=== PATIENT | female | born 1990 | race Two or more races ===

== ENCOUNTER 2017-11-20 08:30 | Observation (INO) | payer MEDICAID ==
[~2017-11-20] VITALS: Ht 154.9 cm; Wt 58.5 kg
[2017-11-20] MEDS ORDERED: PREN-96 PO (10:04)
[2017-11-20 10:06] LABS: Urine Bacteria None Seen /hpf (None Seen)
[2017-11-20 10:15] LABS: Urine Blood 1+ /uL (Negative); Urine Specific Gravity 1.024 (1.001-1.035); Urine WBC 6 /hpf (0 - 5)
[2017-11-20 10:16] LABS: Alcohol, Urine < 3.0 mg/dL (0-5); Amphetamine Screen, Urine NEGATIVE (NEGATIVE); Barbiturate Scree,Urine NEGATIVE (NEGATIVE); Benzodiazephine Screen, Urine NEGATIVE (NEGATIVE); Cannabinoid Screen, Urine POSITIVE (NEGATIVE); Cocaine Screen, Urine NEGATIVE (NEGATIVE); Opiate Scree,Urine NEGATIVE (NEGATIVE); Phencyclidine Screen, Urine NEGATIVE (NEGATIVE); Urine Mucus FEW (None Seen)
[2017-11-20] MEDS ORDERED: ceFAZolin 1GM 2 GM in D5W 5% 100 ML IV ONE (10:45)
[2017-11-20] MEDS ORDERED: LACTATED RINGER'S 1,000 ML IV ONE (10:45)
[2017-11-20] MEDS ORDERED: ceFAZolin 1GM/50ML 100 ML IV ONE (11:20)
[2017-11-20] MEDS ORDERED: ceFAZolin 1GM/50ML 50 ML IV ONE ×2 (11:30)
== END 2017-11-20 13:00 | disposition home or self-care (01) | DRG 566 ==
LOC: LDRP 08:30
PROVIDERS: ADMIT Obstetrics & Gynecology; ATTEND Obstetrics & Gynecology
DX: O23.43 Unspecified infection of urinary tract in pregnancy, third trimester (principal); M54.9 Dorsalgia, unspecified; R10.30 Lower abdominal pain, unspecified; Z3A.28 28 weeks gestation of pregnancy
CPT/HCPCS: 59025; 76775; 76815; 80307; 81001; 81002; 96361; 96365; G0378; J0690; J7060

== ENCOUNTER 2018-01-15 08:45 | Observation (INO) | payer MEDICAID ==
[~2018-01-15 08:45] MED LIST: PREN-96 PO
[2018-01-15 10:25] LABS: Alcohol, Urine < 3.0 mg/dL (0-5); Amphetamine Screen, Urine NEGATIVE (NEGATIVE); Barbiturate Scree,Urine NEGATIVE (NEGATIVE); Benzodiazephine Screen, Urine NEGATIVE (NEGATIVE); Cannabinoid Screen, Urine NEGATIVE (NEGATIVE); Cocaine Screen, Urine NEGATIVE (NEGATIVE); Opiate Scree,Urine NEGATIVE (NEGATIVE); Phencyclidine Screen, Urine NEGATIVE (NEGATIVE)
== END 2018-01-15 10:35 | disposition home or self-care (01) | DRG 563 ==
LOC: LDRP 08:45
PROVIDERS: ADMIT Obstetrics & Gynecology; ATTEND Obstetrics & Gynecology
DX: O60.03 Preterm labor without delivery, third trimester (principal); Z3A.36 36 weeks gestation of pregnancy
CPT/HCPCS: 59025; 76818; 80307; 81002; G0378

== ENCOUNTER 2018-01-25 18:22 | Observation (INO) | payer MEDICAID | END 2018-01-25 20:03 | disposition home or self-care (01) | DRG 566 | LOC: LDRP 18:22 | PROVIDERS: ADMIT Obstetrics & Gynecology; ATTEND Obstetrics & Gynecology | DX: O62.9 Abnormality of forces of labor, unspecified (principal); Z3A.38 38 weeks gestation of pregnancy | CPT/HCPCS: 59025; 76818; 81002; G0378 ==

== ENCOUNTER 2018-02-01 08:50 | Observation (INO) | payer MEDICAID | END 2018-02-01 10:02 | disposition home or self-care (01) | DRG 566 | LOC: LDRP 08:50 | PROVIDERS: ADMIT Specialist; ATTEND Specialist | DX: O99.89 Other specified diseases and conditions complicating pregnancy, childbirth and the puerperium (principal); N13.30 Unspecified hydronephrosis; Z3A.39 39 weeks gestation of pregnancy | CPT/HCPCS: 59025; 76818; 81002; G0378 ==

== ENCOUNTER 2018-02-05 14:45 | Inpatient (IN) | payer MEDICAID ==
[~2018-02-05] VITALS: Ht 154.9 cm; Wt 65.8 kg
[2018-02-05] MEDS ORDERED: LACT. RINGERS/OXYTOCIN 20UNITS 1,000 ML IV ONE (15:02)
[2018-02-05] MEDS ORDERED: LACTATED RINGER'S 1,000 ML IV SCH (15:04)
[2018-02-05] MEDS ORDERED: LIDOCAINE 1% (LOCAL ANESTH.) PF 5ml SDV IJ ONE (15:15)
[2018-02-05] MEDS ORDERED: NALBUPHINE HCL 10 MG/1ml INJECTION IV PRN (15:15)
[2018-02-05] MEDS ORDERED: DERMOPLAST 60ML BOTTLE TOP PRN (15:15)
[2018-02-05] MEDS ORDERED: PENICILLIN G POT 5MIL/D5 50ML 50 ML IV ONE (15:15)
[2018-02-05] MEDS ORDERED: WITCH HAZEL-GLYCERIN PAD TOP PRN (15:15)
[2018-02-05] MEDS ORDERED: PHISODERM TOP SOLN 240ML BTL TOP PRN (15:15)
[2018-02-05 15:36] LABS: Basophils # (auto) 0 uL; Basophils % (auto) 0.4 % (0.0-2.0); Eosinophils # (auto) 0.1 uL; Eosinophils % (auto) 0.5 % (0.0-7.0); Hematocrit 42.4 % (36.0-46.0); Hemoglobin 14.8 g/dL (12.2-16.2); Lymphocytes # (auto) 2.6 uL; Mean Corpuscular Hgb Conc. 34.9 g/dL (32.0-36.0); Mean Corpuscular Volume 97.4 fL (80.0-100.0); Monocytes # (auto) 0.6 uL; Monocytes % (auto) 5.8 % (0.0-12.0); Neutrophils # (auto) 7.2 uL; Neutrophils % (auto) 68.3 % (37.0-80.0); Platelet Count (auto) 167 10^3/uL (140-450); Red Blood Cells 4.35 10^6/uL (4.0-5.20); White Blood Cell 10.5 10^3/uL (4.4-10.8)
[2018-02-05 15:54] LABS: INR 0.85 (0.9-1.15); Partial Thromboplastin Time 23.2 sec (23.78-33.04); Prothrombin Time 9.2 sec (9.27-12.13)
[2018-02-05] MEDS: IBUPROFEN 600 MG TAB PO PRN (16:02)
[2018-02-05 16:08] LABS: Albumin 2.8 g/dL (3.4-5.0); Potassium 3.5 mmol/L (3.5-5.1); Total Protein 6.6 g/dL (6.4-8.2)
[2018-02-05 17:59] LABS: Alcohol, Urine < 3.0 mg/dL (0-5); Amphetamine Screen, Urine NEGATIVE (NEGATIVE); Barbiturate Scree,Urine NEGATIVE (NEGATIVE); Benzodiazephine Screen, Urine NEGATIVE (NEGATIVE); Cannabinoid Screen, Urine NEGATIVE (NEGATIVE); Cocaine Screen, Urine NEGATIVE (NEGATIVE); Opiate Scree,Urine NEGATIVE (NEGATIVE); Phencyclidine Screen, Urine NEGATIVE (NEGATIVE)
[2018-02-05 19:15] VITALS: BP 114/72
[2018-02-05 20:09] LABS: Urine Bacteria NONE SEEN /hpf (None Seen); Urine Blood 3+ /uL (Negative); Urine Mucus FEW (None Seen); Urine Specific Gravity 1.012 (1.001-1.035); Urine WBC 2 /hpf (0 - 5)
[2018-02-05] MEDS ORDERED: TETANUS-DIPTH-ACEL PERTUSSIS 0.5ML SYRG IM ONE (20:15)
[2018-02-05 23:04] VITALS: BP 124/82
[2018-02-06 03:20] VITALS: BP 122/85
[2018-02-06] MEDS: IBUPROFEN 600 MG TAB PO PRN (03:53)
[2018-02-06] MEDS ORDERED: TETANUS-DIPTH-ACEL PERTUSSIS 0.5ML SYRG IM ONE (05:45)
[2018-02-06 07:30] VITALS: BP 140/50
[2018-02-06] MEDS ORDERED: DOCUSATE CALCIUM 240 MG CAP PO SCH (10:00)
[2018-02-06 11:30] VITALS: BP 116/78
[2018-02-06] MEDS ORDERED: ACETAMINOPHEN 325 MG TAB PO PRN (14:15)
[2018-02-06 15:00] VITALS: BP 127/90
[2018-02-06 16:45] VITALS: BP 115/80
[2018-02-07 03:07] LABS: RPR Non Reactive (Non Reactive)
== END 2018-02-06 16:45 | disposition home or self-care (01) | DRG 560 ==
LOC: OBSVTOIN 14:45 → LDRP 14:45
PROVIDERS: ADMIT Specialist; ATTEND Specialist
PROC: 10907ZC Drainage of Amniotic Fluid, Therapeutic from Products of Conception, Via Natural or Artificial Opening (ICD-10-PCS; principal; 2018-02-05)
PROC: 10E0XZZ Delivery of Products of Conception, External Approach (ICD-10-PCS; 2018-02-05)
DX: O99.824 Streptococcus B carrier state complicating childbirth (principal); Z37.0 Single live birth; Z3A.39 39 weeks gestation of pregnancy; O99.324 Drug use complicating childbirth
CPT/HCPCS: 36415; 59025; 59409; 80053; 80307; 81001; 85025; 85610; 85730; 86592; 86850; 86900; 86901; 90715; 96365; 96366; 96372; J2590

== ENCOUNTER 2018-03-24 07:24 | Day surgery (SDC) | payer MEDICAID ==
[~2018-03-24] VITALS: Ht 152.4 cm; Wt 54.0 kg
[~2018-03-24 07:24] MED LIST changes: +ceFAZolin 1GM/50ML 50 ML IV ONE
[2018-03-24] MEDS ORDERED: MIDAZOLAM HCL 1MG/1ML-2 ML VIAL ONE (07:57)
[2018-03-24] MEDS ORDERED: ROCURONIUM 10MG/ML 10ML VIAL IV ONE (07:57)
[2018-03-24] MEDS ORDERED: METOCLOPRAMIDE HCL 5MG/ml INJ 2ml VIAL ONE (07:57)
[2018-03-24] MEDS ORDERED: SODIUM CHLORIDE LOCK 10 ML ONE (07:57)
[2018-03-24] MEDS ORDERED: ONDANSETRON HCL 4 MG/2 ML VIAL ONE (07:57)
[2018-03-24] MEDS ORDERED: MEPERIDINE HCL (50 MG/ML) 1 ML VIAL ONE (07:57)
[2018-03-24] MEDS ORDERED: PROPOFOL 10 MG/ML 20 ML IV ONE (07:57)
[2018-03-24] MEDS ORDERED: fentaNYL CITRATE 100 MCG/2 ML VL ONE (07:57)
[2018-03-24] MEDS ORDERED: KETOROLAC TROMETH 30 MG/ML 1ML VIAL IV ONE (08:00)
[2018-03-24] MEDS ORDERED: METOCLOPRAMIDE HCL 5MG/ml INJ 2ml VIAL IV ONE (08:00)
[2018-03-24] MEDS ORDERED: HYDROmorphone HCL 2 MG/ML VL IV PRN (08:00)
[2018-03-24] MEDS ORDERED: NEOSTIGMINE 1 MG/ML INJ (10mg/10ML VIAL) ONE (09:42)
[2018-03-24] MEDS ORDERED: GLYCOPYRROLATE 0.2 MG/ML 1ML VIAL ONE (09:42)
[2018-03-24] MEDS ORDERED: KETOROLAC TROMETH 60MG/2ML VIAL IM ONE (09:42)
[2018-03-24] MEDS ORDERED: LACTATED RINGER'S 1,000 ML IV SCH (10:09)
[2018-03-24] MEDS ORDERED: ONDANSETRON HCL 4 MG/2 ML VIAL IV PRN (10:15)
[2018-03-24 10:52] VITALS: BP 100/74
== END 2018-03-24 11:11 | disposition home or self-care (01) ==
LOC: SUR 07:24
PROVIDERS: ATTEND Obstetrics & Gynecology
DX: Z30.2 Encounter for sterilization (principal); M19.90 Unspecified osteoarthritis, unspecified site; G47.33 Obstructive sleep apnea (adult) (pediatric); I10 Essential (primary) hypertension; K21.9 Gastro-esophageal reflux disease without esophagitis; F32.9 Major depressive disorder, single episode, unspecified; G62.9 Polyneuropathy, unspecified; Z86.73 Personal history of transient ischemic attack (TIA), and cerebral infarction without residual deficits
CPT/HCPCS: 58671; J2175; J2765; J3010; 86850; 86900; 86901; J0690; J1885; J2250; J2405; J2704

== ENCOUNTER 2022-10-15 20:02 | Emergency (ER) | payer MEDICAID ==
[~2022-10-15] VITALS: Ht 152.4 cm; Wt 47.7 kg
[~2022-10-15 20:02] MED LIST changes: -ceFAZolin 1GM/50ML 50 ML IV ONE
[2022-10-15 21:24] LABS: Urine Bacteria FEW /hpf (None Seen); Urine Blood Negative /uL (Negative); Urine Specific Gravity 1.003 (1.001-1.035); Urine WBC <1 /hpf (0 - 5)
[2022-10-15] MEDS ORDERED: HYDROcodone-ACET 10/325MG TAB PO ONE (22:15)
[2022-10-15] MEDS ORDERED: ONDANSETRON ODT 4 MG TAB PO ONE (22:15)
[2022-10-15 22:29] LABS: Basophils # (auto) 0 10 ^3/uL (0-0.2); Basophils % (auto) 0.1 % (0.0-2.0); Eosinophils # (auto) 0.1 10 ^3/uL (0-0.8); Eosinophils % (auto) 0.7 % (0.0-7.0); Hematocrit 41.9 % (36.0-46.0); Hemoglobin 14.2 g/dL (12.2-16.2); Lymphocytes % (auto) 8.4 % (10.0-50.0); Mean Corpuscular Hemoglobin 31.8 pg (28.0-32.0); Mean Corpuscular Hgb Conc. 33.8 g/dL (32.0-36.0); Mean Corpuscular Volume 93.8 fL (80.0-100.0); Monocytes # (auto) 0.5 10 ^3/uL (0-1.3); Monocytes % (auto) 4.1 % (0.0-12.0); Neutrophils # (auto) 10.2 10 ^3/uL (1.6-8.6); Neutrophils % (auto) 86.7 % (37.0-80.0); Nucleated Red Blood Cells % 0.2 %; Red Blood Cells 4.47 10^6/uL (4.0-5.20); Red Cell Distribution Width 12.3 % (11.8-14.3); White Blood Cell 11.8 10^3/uL (4.4-10.8)
[2022-10-15 22:39] LABS: INR 0.95 (0.9-1.15); Partial Thromboplastin Time 29.6 sec (24.6-33.4)
[2022-10-15 22:49] LABS: Albumin 4.3 g/dL (3.4-5.0); Calcium 8.7 mg/dL (8.5-10.1); Potassium 3.5 mmol/L (3.5-5.1)
[2022-10-15 22:53] LABS: BUN/Creatinine Ratio 16.1 (10.0-20.0); Bilirubin, Total 0.7 mg/dL (0.2-1.0); Total Protein 7.6 g/dL (6.4-8.2)
[2022-10-15] MEDS ORDERED: TETANUS-DIPTH-ACEL PERTUSSIS 0.5ML SYR Tdap IM ONE (23:30)
[2022-10-16] MEDS ORDERED: HYDR-4902 PO (00:41)
[2022-10-16 01:08] VITALS: BP 110/79
== END 2022-10-16 01:12 | disposition home or self-care (01) ==
LOC: ER 20:02
DX: S02.5XXA Fracture of tooth (traumatic), initial encounter for closed fracture (principal); S01.111A Laceration without foreign body of right eyelid and periocular area, initial encounter; S01.511A Laceration without foreign body of lip, initial encounter; S60.511A Abrasion of right hand, initial encounter; M25.532 Pain in left wrist; M25.531 Pain in right wrist; M54.2 Cervicalgia; R51.9 Headache, unspecified; Z79.899 Other long term (current) drug therapy; Z79.01 Long term (current) use of anticoagulants; V87.8XXA Person injured in other specified noncollision transport accidents involving motor vehicle (traffic), initial encounter; Y93.55 Activity, bike riding; Y92.89 Other specified places as the place of occurrence of the external cause; Y99.8 Other external cause status
CPT/HCPCS: 12011; 36415; 70450; 71250; 72125; 73110; 73130; 74176; 80053; 80320; 81001; 85025; 85610; 85730; 90471; 90715; 99285; Q0162